=== PATIENT | male | born 1930 | race Caucasian/White ===

== ENCOUNTER 2017-02-26 10:46 | Emergency (ER) | payer MEDICARE, OTHER ==
[~2017-02-26] VITALS: Ht 175.3 cm; Wt 77.1 kg
[~2017-02-26 10:46] MED LIST: AUGMENTIN 875-1 EACH PO; COUMADIN5 MG PO; CRANBERRY200 MG PO; FLAGYL500 MG PO; GLUCOSAMINE &1 EACH PO; LEVAQUIN500 MG PO; LISINOPRIL-HCT1 EACH PO; LOVENOX80 MG SUB-Q; METRONIDAZOLE500 MG PO; MIRALAX17 GM PO; NORCO 5-325 TA1 EACH PO; NORCO 7.5-3251 EACH PO; PRILOSEC20 MG PO; PRINZIDE 20-121 EACH PO; PROMETHAZINE HC25 M1 PO; SENNA8.6 MG PO; ZESTORETIC 10-121 E1 PO
[2017-02-26] MEDS ORDERED: FLOMAX0.4 MG PO (11:12)
[2017-02-26] MEDS ORDERED: ZESTORETIC 10-1 EACH PO (11:12)
[2017-02-26] MEDS ORDERED: VITAMIN B COMP1 EACH PO (11:12)
[2017-02-26] MEDS ORDERED: NORCO 5-325 TA1 EACH PO (11:18)
[2017-02-26] MEDS ORDERED: SILVADENE20 GM TOP (11:18)
[2017-02-26] MEDS ORDERED: AUGMENTIN 875-1 EACH PO ×2 (11:19→11:20)
== END 2017-02-26 11:50 | disposition home or self-care (01) ==
LOC: ED 10:46
DX: T24.211A Burn of second degree of right thigh, initial encounter (principal); I10 Essential (primary) hypertension; Z86.718 Personal history of other venous thrombosis and embolism; Z87.891 Personal history of nicotine dependence; Z90.49 Acquired absence of other specified parts of digestive tract; Z79.899 Other long term (current) drug therapy; X10.0XXA Contact with hot drinks, initial encounter
CPT/HCPCS: 99283

== ENCOUNTER 2019-03-11 14:12 | Observation (INO) | payer MEDICARE, OTHER ==
[~2019-03-11] VITALS: Ht 175.3 cm; Wt 77.1 kg
[~2019-03-11 14:12] MED LIST changes: +FLOMAX0.4 MG PO; +PRILOSEC OTC20 MG PO; -PRILOSEC20 MG PO; +SILVADENE20 GM TOP; +VITAMIN B COMP1 EACH PO; +ZESTORETIC 10-1 EACH PO
[2019-03-11] MEDS ORDERED: LISINOPRIL-HCT1 EAC2 PO (14:26)
[2019-03-11] MEDS ORDERED: METAMUCIL660 GM PO (14:27)
--- NOTE | 2019-03-11 18:47 | NUR ---
PT ARRIVED TO UNIT VIA STRETCHER. AMB INDEPENDENTLY TO HOSPITAL BED. PT ALERT AND ORIENTED TO ALL. DENIES PAIN, SOB OR OTHER CONCERNS AT THIS TIME. REPORTS SOB ONLY WITH EXTENDED EXCERTION. SL TO RIGHT AC FLUSHES EASILY, DRESSING CDI. TELE MONITOR APPLIED. PT EDUCATED ON PLAN OF CARE, ORIENTED TO ROOM. CALL LIGHT AND PERSONAL BELONGINGS WITHIN REACH.
--- NOTE | 2019-03-11 18:57 | NUR ---
PT ATE 100% OF DINNER, KIMBERLY WELL.
--- NOTE | 2019-03-11 19:05 | NUR ---
CHARGE NURSE REPORT RECEIVED FROM BONNIE, DAY CHARGE. PT REQUESTED THAT PHONE CALL BE MADE TO HIS SON WILLIAM, FAMILY IS UNAWARE HE IS ADMITTED.
--- NOTE | 2019-03-11 19:20 | NUR ---
BEDSIDE REPORT RECEIVED FROM ARLETTE CHANDLER. PT RESTING IN BED. BED ALARM PLACED. PERSONAL SUPPLIES AND CALL LIGHT IN REACH. INSTRUCED TO USE CALL LIGHT BEFORE GETTING OUT OF BED.
--- NOTE | 2019-03-11 21:41 | NUR ---
PT ASSESSMENT COMPLETE. URINAL EMPTIED. LUNG SOUNDS CLEAR THROUGHOUT ALL LOBES. SPO2 WNL ON RA. PUDDING AND CRACKERS PROVIDED REQUESTED. PT DENIES ANY PAIN. IV FLUSHED, SL WNL. CALL LIGHT NEXT TO PT.
--- NOTE | 2019-03-11 22:00 | NUR ---
PT SON LEAVING. WAS SURPRISED THAT PT CAME TO THE ED, HE HAD BEEN UP HUNTING PRIOR TO TODAY.
--- NOTE | 2019-03-11 23:17 | NUR ---
CHECKED ON PT RESTING IN BED WITH EYES CLOSED, BREATHING EQUAL AND UNLABORED. HR 57 ON TELE 9.
--- NOTE | 2019-03-12 02:23 | NUR ---
PT ASSESSMENT COMPLETE. PT SLEEPING, AWAKENS TO VOICE. DROWSY. VSS. HR NORMAL RHYTHM, 52 ON TELE 9. CALL LIGHT IN REACH. URINAL EMPTIED. NO REQUESTS AT THIS TIME.
--- NOTE | 2019-03-12 04:35 | NUR ---
CALL LIGHT ANSWERED. URINAL EMPTIED. CALL LIGHT IN REACH. NO ADDITIONAL REQUESTS.
--- NOTE | 2019-03-12 06:34 | NUR ---
PT SLEEPING, AWKENS TO VOICE. SCHEDULED MEDICATION ADMINISTERED. VSS. HR SINUS HUANG ON TELE 9. NO REQUESTS AT THIS TIME. CALL LIGHT IN REACH.
--- NOTE | 2019-03-12 06:35 | NUR ---
PT RESTED WELL THROUGHOUT SHIFT. VOIDING QS URINE OUTPUT IN URINAL. SBA. GAIT STEADY. USING CALL LIGHT. IV SL. VSS. TELE 9, SINUS BRADYCARDIA. LUNG SOUNDS CLEAR THROUGHOUT ALL LOBES.
--- NOTE | 2019-03-12 08:38 | NUR ---
PT SITTING UP AT EDGE OF BED TO EAT BREAKFAST, KIMBERLY WELL. PT DENIES PAIN, NAUSEA, SOB, OR OTHER CONCERNS AT THIS TIME. ALERT AND ORIENTED TO ALL. PT CONSENTED TO FLU SHOT, ADMINISTERED AT THIS TIME. TELE [address], CURRENTLY SINUS RHYTHM, HR 70. SL IN PLACE, FLUSHES EASILY. CALL LIGHT WITHIN REACH.
--- NOTE | 2019-03-12 09:28 | NUR ---
PT RESTING IN BED. PT HAS NO NEEDS AT THIS TIME. CALL LIGHT WITHIN REACH.
[2019-03-12] MEDS ORDERED: AIRBORNE TABLE1 EACH PO (10:04)
--- NOTE | 2019-03-12 10:11 | NUR ---
MED REC COMPLETE
[2019-03-12] MEDS ORDERED: COUMADIN5 MG PO (11:27)
[2019-03-12] MEDS ORDERED: LOVENOX120 MG/0.8 SUB-Q (11:28)
--- NOTE | 2019-03-12 11:44 | NUR ---
PT SHOWERED WITH MINIMAL ASSIST. DRESSED IN PERSONAL CLOTHING. IV DC'D BY MASSIMO LONG. PT AWAITING DISCHARGE.
--- NOTE | 2019-03-12 12:30 | NUR ---
PT SITTING AT EDGE OF BED EATING LUNCH. DRESSED AND READY FOR DC INSTRUCTIONS ONCE HE IS DONE EATING. CALL LIGHT WITHIN REACH.
--- NOTE | 2019-03-12 13:45 | NUR ---
PT IS DRESSED, SITTING ON SIDE OF BED, EATING LUNCH. HE IS ALERT, ORIENTED AND SAID HE IS BETTER THAN YESTERDAY. PT BEGAN TO TELL HIS STORY OF WHAT BROUGHT HIM TO [facility]. HAD GOOD CONVERSATION, PT SAID HE IS DRIVING HOME FOLLOWING DC. I INFORMED NEUROPSYCHOLOGY DIRECTOR OF HIS PLANS, THEY WELL MAKE SURE HE IS SAFE TO DRIVE WITH ANY MEDS HE MAY BE ON. EXTENDED A BLESSING, WILL FOLLOW NEEDED
--- NOTE | 2019-03-12 19:41 | EKG ---
[facility] [address] [place] [address] Signed Normal sinus rhythm T wave abnormality, consider inferior ischemia T wave abnormality, consider anterolateral ischemia Prolonged QT Abnormal ECG No previous ECGs available Confirmed by JARAD SCHNEIDER DO ([id number]) on 03/12/2019 7:40:42 PM Electronically Signed By: JARAD SCHNEIDER DO 03/12/191940 PATIENT NAME: DARCY SANCHEZ TREVOR Electrocardiogram DATE OF : 30 PHYSICIAN: JARAD SCHNEIDER DO REPORT #: [id number] REPORT IS CONFIDENTIAL AND NOT TO BE RELEASED WITHOUT AUTHORIZATION
== END 2019-03-12 13:15 | disposition home or self-care (01) ==
LOC: ED 14:12 → MS 14:14
PROVIDERS: ADMIT Internal Medicine
DX: I26.99 Other pulmonary embolism without acute cor pulmonale (principal); I10 Essential (primary) hypertension; K59.01 Slow transit constipation; Z79.899 Other long term (current) drug therapy; Z86.711 Personal history of pulmonary embolism; Z87.891 Personal history of nicotine dependence; Z23 Encounter for immunization
CPT/HCPCS: 80053; 83880; 84484; 85025; 85610; 85730; 90662; 93005; 93010; 96372; 99285-25; G0378; J1650